=== PATIENT | male | born 1955 | race Caucasian/White ===

== ENCOUNTER 2023-09-06 09:21 | Day surgery (SDC) | payer MEDICARE, OTHER, SELFPAY ==
[2023-09-01 16:05] VITALS: BMI 34.9
--- NOTE | 2023-09-05 08:51 | P.CONAN_ITS ---
Documented by User: Nubia Samaniego NP 09/05/23 08:52 HPI - Anesthesia Eval Consult details Narrative: 67yo M for Upper Endoscopy and Colonoscopy [facility] Past Medical History Medical History Cluster headaches BPH (benign prostatic hyperplasia) Empty sella Fatty liver Elevated LFTs Thoracic aortic ectasia Hypogonadism, male Osteoarthritis HTN (hypertension) Hx of flexible sigmoidoscopy History of Almodovar's esophagus Surgical History Surgical History H/O inguinal hernia repair Hx of shoulder surgery Hx of toe surgery History of esophagogastroduodenoscopy (EGD) Social History Patient Tobacco Use Status: Former Tobacco user Advance Directives: No Advance Directives Information Provided: Yes Meds Allergies Allergy/AdvReac Type Severity Reaction Status Date / Time codeine Allergy Unknown Verified 09/01/23 15:52 lisinopril Allergy Unknown Verified 09/01/23 15:52 Home Medications Medication Instructions Recorded Confirmed Last Taken Type atenolol 50 mg tablet 50 mg PO DAILY 09/01/23 09/06/23 09/06/23 07:30 History 50 losartan 50 mg tablet 50 mg PO DAILY 09/01/23 09/06/23 09/06/23 07:30 History 50 multivitamin 1 tab PO DAILY 09/01/23 09/01/23 Unknown History omega-3 fatty acids 500 mg capsule 500 mg PO DAILY 09/01/23 09/01/23 Unknown History omeprazole 20 mg tablet,delayed 20 mg PO DAILY 09/01/23 09/01/23 Unknown History release testosterone cypionate 200 mg/mL mg 09/01/23 Unknown History intramuscular kit Exam Height,Weight and Vital Signs: Height 5 ft 11 in Weight 113.398 kg Assessment and Plan Assessment Anesthesia Assessment: Chart Reviewed Documented by User: Nereyda Mak MD 09/06/23 09:58 [facility] Past Medical History Medical History Cluster headaches BPH (benign prostatic hyperplasia) Empty sella Fatty liver Elevated LFTs Thoracic aortic ectasia Hypogonadism, male Osteoarthritis HTN (hypertension) Hx of flexible sigmoidoscopy History of Almodovar's esophagus Surgical History Surgical History H/O inguinal hernia repair Hx of shoulder surgery Hx of toe surgery History of esophagogastroduodenoscopy (EGD) History of Problems with Anesthesia: No Social History Patient Tobacco Use Status: Former Tobacco user Advance Directives: No Advance Directives Information Provided: Yes Meds Allergies Allergy/AdvReac Type Severity Reaction Status Date / Time codeine Allergy Unknown Verified 09/01/23 15:52 lisinopril Allergy Unknown Verified 09/01/23 15:52 Home Medications Medication Instructions Recorded Confirmed Last Taken Type atenolol 50 mg tablet 50 mg PO DAILY 09/01/23 09/06/23 09/06/23 07:30 History 50 losartan 50 mg tablet 50 mg PO DAILY 09/01/23 09/06/23 09/06/23 07:30 History 50 multivitamin 1 tab PO DAILY 09/01/23 09/01/23 Unknown History omega-3 fatty acids 500 mg capsule 500 mg PO DAILY 09/01/23 09/01/23 Unknown History omeprazole 20 mg tablet,delayed 20 mg PO DAILY 09/01/23 09/01/23 Unknown History release testosterone cypionate 200 mg/mL mg 09/01/23 Unknown History intramuscular kit Exam Airway Mallampati Class: III TM Dist: >3cm Neck ROM: Full Loose/Missing/Broken Teeth: No Heart: RRR Lungs: CTA Assessment and Plan Assessment Anesthesia Assessment: Anesthesia Plan Discussed Final Anesthetic Review History of Problems with Anesthesia: No NPO: Yes ASA Class: II Final Preanesthetic Review: Meds/Allgs Chart Reviewed, Consent Obtained/Reviewed and Anes Risks/Benef Reviewed Patient Risk: Low Procedure Risk: Intermediate Anesthetic Plan Anesthetic Plan: MAC: Disposition: Standard PACU
[2023-09-06 09:34] VITALS: BMI 34.9
[2023-09-06 09:47] VITALS: BP 139/75; PULSE 55; RESP 20; TEMP 36.8; O2SAT 94
--- NOTE | 2023-09-06 09:58 | MHC.SHP ---
Pre-Procedural Eval Section A Date of Service: 09/06/23 The patient is an INPATIENT: No Changes since office visit: No Cold of Flu in the past 2 weeks, No New Medical Problems, No Changes in Medication and No Patient answered all questions The History & Physical has been completed within 30 days and I have reviewed it.: Yes Section B Chief Complaint: Almodovar's esophagus without dysplasia,screening Allergies: Allergies Allergy/AdvReac Type Severity Reaction Status Date / Time codeine Allergy Unknown Verified 09/01/23 15:52 lisinopril Allergy Unknown Verified 09/01/23 15:52 Plan I have reviewed the history and physical and performed a pertinent physical examination on my patient. No changes have occurred unless specified. Time Spent With Patient Time: Total time managing care of this patient today ____ minutes.
[2023-09-06 10:40] VITALS: BP 106/55; PULSE 62; RESP 20; TEMP 38.3; O2SAT 99
[2023-09-06 10:44] VITALS: TEMP 37.1; O2SAT 95
[2023-09-06 11:01] VITALS: BP 109/61; PULSE 52; RESP 16; TEMP 36.9; O2SAT 95
--- NOTE | 2023-09-06 11:06 | OP_ITS ---
DATE OF SERVICE: 09/06/2023 SURGEON: Anand Oconnor MD INDICATIONS: 1. Almodovar's esophagus. 2. Colon cancer screening. PREOPERATIVE DIAGNOSIS: POSTOPERATIVE DIAGNOSIS: PROCEDURE PERFORMED: Upper endoscopy with biopsy, colonoscopy to the cecum. ESTIMATED BLOOD LOSS: COMPLICATIONS: ANESTHESIA: Monitored anesthesia care. ASSISTANTS: SPECIMENS: DESCRIPTION OF PROCEDURE: A history and physical performed. The risks and benefits of the procedure were explained to the patient. Informed consent was obtained. The patient was placed in the left lateral decubitus position. The Olympus video gastroscope was introduced into the esophagus, stomach, and duodenum. Examination was performed. The scope was removed. He was repositioned for colonoscopy. A digital rectal exam was performed and was found to be normal. The Olympus pediatric video colonoscope was introduced into the rectum and advanced to the cecum. The cecum was identified by transillumination, palpation, and identification of ileocecal valve. Examination was performed and the scope was removed. He tolerated both procedures well and was returned to recovery area in stable condition. FINDINGS: Upper endoscopy: 1. Esophagus: The esophagus showed irregular EG junction without any raised areas or ulcerated areas. There was no esophagitis. Biopsies were obtained because of the history of Almodovar esophagus. 2. Stomach: The stomach was normal. There were multiple benign-appearing gastric polyps, which were not biopsied. These were present in the body and fundus. 3. Duodenum: The bulb and 2nd portion were normal. Colonoscopy: The terminal ileum was not examined. The visualized colonic mucosa was within normal limits without evidence of masses or ulcers. No polyps were identified. Retroflexed examination showed some small internal hemorrhoids. The quality of the prep was good. IMPRESSION: 1. Almodovar esophagus. 2. Normal colonoscopy. RECOMMENDATION: Follow up the biopsy results. Colonoscopy is recommended for 10 years. MD REYES Kiran/AXEL / [id number] MTDD
== END 2023-09-06 11:30 | disposition home or self-care (01) ==
PROVIDERS: PCP Internal Medicine; Visit Provider Internal Medicine Gastroenterology
PROC: (CPT 43239; principal; 2023-09-06 10:30)
DX: Z12.11 Encounter for screening for malignant neoplasm of colon (principal); K22.70 Barrett's esophagus without dysplasia; K64.8 Other hemorrhoids; Z86.010 Personal history of colon polyps; I10 Essential (primary) hypertension; I77.810 Thoracic aortic ectasia; K76.0 Fatty (change of) liver, not elsewhere classified; N40.0 Benign prostatic hyperplasia without lower urinary tract symptoms; Z87.891 Personal history of nicotine dependence; Z79.899 Other long term (current) drug therapy
CPT/HCPCS: 43239; G0105; 88305; J2250; J2704